=== PATIENT | female | born 1935 | race Caucasian/White ===

== ENCOUNTER 2024-06-16 15:52 | Observation (INO) ==
[2024-06-16 16:16] LABS: BILIRUBIN,URINE NEGATIVE (NEGATIVE); BLOOD/HEMOGLOBIN,URINE 1+ (NEGATIVE); GLUCOSE, URINE 2+ (NEGATIVE); KETONES,URINE 1+ (NEGATIVE); LEUKOCYTE ESTERASE ,URINE NEGATIVE (NEGATIVE); NITRITES,URINE NEGATIVE (NEGATIVE); PH,URINE 6.5 (5.0 - 8.0); PROTEIN,URINE 2+ (NEGATIVE); UROBILINOGEN,URINE NORMAL (NORMAL)
[2024-06-16 16:23] LABS: APPEARANCE,URINE CLEAR (CLEAR); COLOR,URINE PALE YELLOW (YELLOW)
[2024-06-16 16:26] LABS: BACTERIA,URINE NEGATIVE /HPF (NEGATIVE); RBC,URINE 0-2 /HPF (0-3); SQUAMOUS EPITHELIAL CELL,UR RARE /HPF (NEGATIVE)
[2024-06-16 16:32] LABS: BASOPHILS # (AUTO) 0.1 X10^3/uL (0.0-0.1); BASOPHILS % (AUTO) 0.7 % (0.2-1.0); EOSINOPHILS % (AUTO) 0.1 % (0.9-2.9); HEMATOCRIT 38.7 % (36.0-47.0); HEMOGLOBIN 13.2 g/dL (12.0-16.0); LYMPHOCYTES % (AUTO) 10.4 % (21.0-51.0); MEAN CORPUSCULAR HEMOGLOBIN 31.6 pg (27.0-34.0); MEAN CORPUSCULAR HGB CONC 34.1 g/dL (33.0-35.0); MEAN CORPUSCULAR VOLUME 92.5 fL (80.0-100.0); MEAN PLATELET VOLUME 9.2 fL (7.4-11.0); MONOCYTES # (AUTO) 0.2 x10^3/uL (0.3-0.8); MONOCYTES % (AUTO) 1.7 % (0.0-13.0); NEUTROPHILS # (AUTO) 8.2 x10^3/uL (2.2-4.8); NEUTROPHILS % (AUTO) 87.1 % (42.0-75.0); PLATELET COUNT 226 X10^3/uL (150.0-450.0); RED BLOOD COUNT 4.18 X10^6/uL (3.5-5.4); WHITE BLOOD COUNT 9.4 X10^3/uL (3.6-10.0)
[2024-06-16] MEDS: PROCARDIA XL 24-HR PO ONE ×2 (16:33→23:02)
[2024-06-16] MEDS: HYDROCHLOROTHIAZIDE 12.5 MG CAP PO ONE (16:34)
[2024-06-16] MEDS: NORVASC TAB 10 MG PO ONE (16:37)
[2024-06-16 16:41] LABS: ALANINE AMINOTRANSFERASE 19 Units/L (12-78); ALBUMIN 3.6 g/dL (3.4-5.0); ALKALINE PHOSPHATASE 82 Units/L (46-116); ASPARTATE AMINO TRANSFERASE 22 Units/L (15-37); BLOOD UREA NITROGEN 26 mg/dL (7-18); CALCIUM 9.3 mg/dL (8.5-10.1); CARBON DIOXIDE 24.6 mmol/L (21-32); CHLORIDE 101 mmol/L (98-107); COR NA(FOR HYPERGLY) 140 mmol/L (136-145); CREATININE 1.45 mg/dL (0.55-1.02); GLUCOSE 200 mg/dL (65-99); SODIUM 138 mmol/L (136-145); TOTAL PROTEIN 8.1 g/dL (6.4-8.2); eGFR NON BLACK RACES 36 (>60)
[2024-06-16 16:43] LABS: POTASSIUM 4.2 mmol/L (3.5-5.1)
--- NOTE | 2024-06-16 18:10 | DR.URINEF ---
HPI Time Seen Time Seen by Provider: 06/16/24 17:53 PCP Primary Care Physician: chun small HPI Comment HPI Comment: Melissa Small, the patient's PCP called the ER earlier to let us know that patient had been treated for UTI and was still symptomatic and had been weak and a little bit of altered mental status with some confusion. Patient had some improvement with antibiotic then had a fall with no significant injury. She finished the antibiotic and followed up with Ortho after the fall with a negative workup. Patient has continued to complain of dysuria and frequency. In the ER she is able to answer questions well but does appear weak. Per Melissa she had discussed with Dr. Lewis to admit her and help with failure to thrive and possible rehab. Complaint Chief Complaint:: Patient c.o of not feeling well the past couple of days she states she was diagnosed with a uti last week following a fall and she was placed on a antibotic and she finished it and has followed up with a ortho from the fall but still c.o of back pain along with pain when urinating. Patient was taken by primary care staff to the ortho today where she was given toradol shot, steriod shot for her back pain. COVID-19 Coronavirus risk:travel/contact w/high risk person: No Has patient experienced Coronavirus symptoms: No Source History Provided: Patient Mode of Arrival Mode of Arrival: Wheelchair Timing Onset of Chief Complaint: 06/10/24 PMH PMH Past Medical History: Yes Past Medical History: Arthritis, Diabetes, Dyslipidemia, GERD and Hypertension Past Surgical History: Yes Surgical History: Appendectomy, Cholecystectomy and Hysterectomy Family History History of Family Medical Conditions: Yes Family Medical History: Cancer Social History Does patient currently use any type of tobacco product: No Have you used tobacco products in the last 12 months: No Type of Tobacco Use: None Does any household member use tobacco: No Alcohol Use: None Do you use any recreational Drugs:: No Lives With: Family Lives Where: Home Travel Risk Coronavirus risk:travel/contact w/high risk person: No Has patient experienced Coronavirus symptoms: No Infectious screening In the last 2 months have you had wt loss of >10#?: NO Have you had fever, night sweats or hemotysis?: No Have you traveled outside the country in the last 6 months?: No Isolation: Standard ROS Review of Systems Constitutional: No Symptoms Reported and Weakness; negative Fever Eyes: No Symptoms Reported ENTM: No Symptoms Reported Respiratoy: No Symptoms Reported Cardiovascular: No Symptoms Reported Gastrointestinal/Abdominal: No Symptoms Reported Genitourinary: See HPI, Dysuria and Frequency; negative Discharge or Hematuria Neurological: No Symptoms Reported Musculoskeletal: No Symptoms Reported Integumentary: No Symptoms Reported Hematologic/Lymphatic: No Symptoms Reported Endocrine: No Symptoms Reported Psychiatric: No Symptoms Reported All Other Systems: Reviewed and Negative PE Vital Signs Vitals: Vital Signs Temperature 98.8 F Pulse Rate 104 Respiratory Rate 15 Blood Pressure 231/105 O2 Sat by Pulse Oximetry 99 General Limitations: No Limitations General Appearance: Alert, In No Apparent Distress and Other (Generalized weakness) Eyes Eye exam: Normal Appearance ENT ENT Exam: Normal Exam Neck Neck Exam: Normal Inspection Chest Chest Inspection: Normal Inspection Respiratory Respiratory Exam: Normal Lung Sounds Bilat Respiratory Exam: Bilateral: Clear to Auscultation Cardiovascular Cardiovascular Exam: Regular Rate and Normal Rhythm Abdominal Exam Abdominal Exam: Normal Inspection, Normal Bowel Sounds and Soft Rectal Rectal Exam: Deferred Genitourinary External Exam: Female: Deferred : Speculum Exam (Female): Deferred : Bimanual Exam (female): Deferred Extremities Extremities Exam: Normal Inspection Back Back Exam: Normal Inspection Neurologic Neurological Exam: Alert, Oriented X3 and Other (Very subtle confusion. No focal symptoms.) Psychiatric Psychiatric Exam: Normal Affect and Normal Mood Skin Skin Exam: Warm, Dry, Intact and Normal Color Other Exam Other Exam: Patient appears deconditioned. COURSE Treatment Treatment: Discussed results of workup with patient and family. Consultation Called: 18:11 Consultation Comments: Discussed case with Dr. Alex. She is agreeable to admission. [facility] Labs Reviewed 06/16/24 16:20 06/16/24 16:20 Laboratory: WBC 9.4 X10^3/uL (3.6-10.0) 06/16/24 16:20 RBC 4.18 X10^6/uL (3.5-5.4) 06/16/24 16:20 Hgb 13.2 g/dL (12.0-16.0) 06/16/24 16:20 Hct 38.7 % (36.0-47.0) 06/16/24 16:20 MCV 92.5 fL (80.0-100.0) 06/16/24 16:20 MCH 31.6 pg (27.0-34.0) 06/16/24 16:20 MCHC 34.1 g/dL (33.0-35.0) 06/16/24 16:20 RDW 13.0 % (11.6-16.5) 06/16/24 16:20 Plt Count 226 X10^3/uL (150.0-450.0) 06/16/24 16:20 MPV 9.2 fL (7.4-11.0) 06/16/24 16:20 Neut % (Auto) 87.1 % (42.0-75.0) H 06/16/24 16:20 Lymph % (Auto) 10.4 % (21.0-51.0) L 06/16/24 16:20 [place] % (Auto) 1.7 % (0.0-13.0) 06/16/24 16:20 Eos % (Auto) 0.1 % (0.9-2.9) L 06/16/24 16:20 Baso % (Auto) 0.7 % (0.2-1.0) 06/16/24 16:20 Neut # (Auto) 8.2 x10^3/uL (2.2-4.8) H 06/16/24 16:20 Lymph # (Auto) 1.0 X10^3/uL (1.3-2.9) L 06/16/24 16:20 [place] # (Auto) 0.2 x10^3/uL (0.3-0.8) L 06/16/24 16:20 Eos # (Auto) 0.0 x10^3/uL (0.0-0.2) 06/16/24 16:20 Baso # (Auto) 0.1 X10^3/uL (0.0-0.1) 06/16/24 16:20 Absolute Nucleated RBC 0.0 /100WBC 06/16/24 16:20 Sodium 138 mmol/L (136-145) 06/16/24 16:20 Corrected Sodium 140 mmol/L (136-145) 06/16/24 16:20 Potassium 4.2 mmol/L (3.5-5.1) 06/16/24 16:20 Chloride 101 mmol/L (98-107) 06/16/24 16:20 Carbon Dioxide 24.6 mmol/L (21-32) 06/16/24 16:20 BUN 26 mg/dL (7-18) H 06/16/24 16:20 Creatinine 1.45 mg/dL (0.55-1.02) H 06/16/24 16:20 Est GFR (MDRD) Af Amer 44 (>60) L 06/16/24 16:20 Est GFR (MDRD) Non-Af 36 (>60) L 06/16/24 16:20 Glucose 200 mg/dL (65-99) H 06/16/24 16:20 Calcium 9.3 mg/dL (8.5-10.1) 06/16/24 16:20 Corrected Calcium TNP 06/16/24 16:20 Total Bilirubin 0.30 mg/dL (0.2-1.0) 06/16/24 16:20 AST 22 Units/L (15-37) 06/16/24 16:20 ALT 19 Units/L (12-78) 06/16/24 16:20 Alkaline Phosphatase 82 Units/L (46-116) 06/16/24 16:20 Total Protein 8.1 g/dL (6.4-8.2) 06/16/24 16:20 Albumin 3.6 g/dL (3.4-5.0) 06/16/24 16:20 Globulin 4.5 g/dL (2.5-4.5) 06/16/24 16:20 Albumin/Globulin Ratio 0.8 Ratio (1.1-2.1) L 06/16/24 16:20 Specimen Type Clean catch urine 06/16/24 16:07 Urine Color Pale yellow (YELLOW) 06/16/24 16:07 Urine Appearance Clear (CLEAR) 06/16/24 16:07 Urine pH 6.5 (5.0 - 8.0) 06/16/24 16:07 Ur Specific Frederica 1.015 (1.000-1.030) 06/16/24 16:07 Urine Protein 2+ (NEGATIVE) 06/16/24 16:07 Urine Glucose (UA) 2+ (NEGATIVE) 06/16/24 16:07 Urine Ketones 1+ (NEGATIVE) 06/16/24 16:07 Urine Blood 1+ (NEGATIVE) 06/16/24 16:07 Urine Nitrite Negative (NEGATIVE) 06/16/24 16:07 Urine Bilirubin Negative (NEGATIVE) 06/16/24 16:07 Urine Urobilinogen Normal (NORMAL) 06/16/24 16:07 Ur Leukocyte Esterase Negative (NEGATIVE) 06/16/24 16:07 Urine RBC 0-2 /HPF (0-3) 06/16/24 16:07 Urine WBC None seen /HPF (0-5) 06/16/24 16:07 Ur Squamous Epith Cells Rare /HPF (NEGATIVE) 06/16/24 16:07 Urine Bacteria Negative /HPF (NEGATIVE) 06/16/24 16:07 Ur Culture Indicated? No/not indicated 06/16/24 16:07 Opioid Opioid Risk Tool Age (Ayden box if 16-45): No History of Preadolescent Sexual Abuse: No Total: 0 Total Score Risk Category: Low Risk Copyright: Leonel NÚÑEZ predicting aberrant behaviors Discharge Plan Diagnosis Discharge Problem: Acute UTI, Physical deconditioning, Adult failure to thrive Discharge Plan Patient Disposition: 09 ADMITTED INPATIENT Condition: Stable Prescriptions: No Action meloxicam 15 mg tablet 15 mg PO DAILY hydrochlorothiazide 12.5 mg tablet 12.5 mg PO QDAY esomeprazole magnesium 40 mg capsule,delayed release(DR/EC) 40 mg PO QDAY bacitracin 500 unit/gram ointment 1 applic topical BID Qty: 14 0RF potassium chloride 10 mEq tablet,ER particles/crystals 10 meq PO QDAY MDD 1 Qty: 14 0RF cyclobenzaprine 10 mg tablet 10 mg PO QPM nifedipine 90 mg tablet extended release 90 mg PO DAILY Health Concerns: Post Hospitalization: new medications and changes needed to prevent readmission or further decline. Pt educated and given instructions on all concerns. Plan of Treatment: Continue with present treatment and follow up plan. Pt is to keep follow up appointment as instructed and take medications as ordered. Orders to Discharge Patient Discharge Orders: Transfer (Routine); Ordered 06/16/24 Ordered By: Joel Jha Follow ups/Referrals Follow ups/Referrals: Chun Small [Primary Care Provider] - 3 days Instructions Stand Alone Forms: Find Help Web Site, Post Hospital Follow Up Care
[2024-06-16] MEDS: APRESOLINE INJ 20 MG VIAL IVP ONE (18:14)
[2024-06-16] MEDS: CIPRO IV 400 MG PREMIX* 400 MG/200 ML IV.SOLN. IV ONE (18:15)
[2024-06-16] MEDS: TYLENOL 325 MG TAB PO ONE (18:42)
[2024-06-16] MEDS ORDERED: NovoLIN R (or HumuLIN R) SUBCUT PRN (23:03)
[2024-06-16] MEDS: FLEXERIL TAB 10 MG PO SCH (23:51)
[2024-06-16] MEDS: NS 1,000 ML IV 1,000 ML IV SCH (23:52)
[2024-06-17] MEDS: SNACK - Diabetic Appropriate PO SCH (00:14)
--- NOTE | 2024-06-17 00:57 | EKG ---
Test Reason : HYPERTENSION PROTOCOL Blood Pressure : */* mmHG Vent. Rate : 108 BPM Atrial Rate : 108 BPM P-R Int : 156 ms QRS Dur : 86 ms QT Int : 362 ms P-R-T Axes : 93 -34 5 degrees QTc Int : 485 ms Sinus tachycardia with premature atrial complexes Left axis deviation Pulmonary disease pattern Nonspecific ST abnormality Abnormal ECG When compared with ECG of 03-JUN-2024 13:01, pacs and septal mi now gone Confirmed by Shivam Jacob MD ([id number]) on 06/17/2024 6:31:15 AM Referred By: Confirmed By: Shivam Jacob MD
[2024-06-17] MEDS: CATAPRES TAB 0.1 MG PO ONE (01:01)
[2024-06-17] MEDS: ULTRAM PO PRN (01:12)
[2024-06-17 05:23] LABS: BASOPHILS # (AUTO) 0.1 X10^3/uL (0.0-0.1); BASOPHILS % (AUTO) 0.6 % (0.2-1.0); EOSINOPHILS % (AUTO) 0.2 % (0.9-2.9); HEMATOCRIT 38.9 % (36.0-47.0); HEMOGLOBIN 13.5 g/dL (12.0-16.0); LYMPHOCYTES # (AUTO) 2.4 X10^3/uL (1.3-2.9); LYMPHOCYTES % (AUTO) 23.2 % (21.0-51.0); MEAN CORPUSCULAR HEMOGLOBIN 31.7 pg (27.0-34.0); MEAN CORPUSCULAR HGB CONC 34.6 g/dL (33.0-35.0); MEAN CORPUSCULAR VOLUME 91.6 fL (80.0-100.0); MEAN PLATELET VOLUME 9.9 fL (7.4-11.0); MONOCYTES # (AUTO) 1.1 x10^3/uL (0.3-0.8); MONOCYTES % (AUTO) 10.4 % (0.0-13.0); NEUTROPHILS # (AUTO) 6.9 x10^3/uL (2.2-4.8); NEUTROPHILS % (AUTO) 65.6 % (42.0-75.0); PLATELET COUNT 246 X10^3/uL (150.0-450.0); RED BLOOD COUNT 4.25 X10^6/uL (3.5-5.4); WHITE BLOOD COUNT 10.5 X10^3/uL (3.6-10.0)
[2024-06-17 05:38] LABS: ALANINE AMINOTRANSFERASE 16 Units/L (12-78); ALBUMIN 3.6 g/dL (3.4-5.0); ALKALINE PHOSPHATASE 76 Units/L (46-116); ASPARTATE AMINO TRANSFERASE 17 Units/L (15-37); BLOOD UREA NITROGEN 23 mg/dL (7-18); CALCIUM 9.3 mg/dL (8.5-10.1); CHLORIDE 102 mmol/L (98-107); COR NA(FOR HYPERGLY) 141 mmol/L (136-145); GLUCOSE 140 mg/dL (65-99); POTASSIUM 3.7 mmol/L (3.5-5.1); SODIUM 140 mmol/L (136-145); TOTAL PROTEIN 7.9 g/dL (6.4-8.2); eGFR NON BLACK RACES 45 (>60)
[2024-06-17] MEDS ORDERED: CONSULT PHARMACY - POTASSIUM & MAGNESIUM XX SCH (07:00)
[2024-06-17] MEDS: NORVASC TAB 5 MG ONE (07:28)
[2024-06-17] MEDS: PROCARDIA XL 24-HR PO ONE (07:29)
[2024-06-17] MEDS ORDERED: KLOR-CON 10 MEQ TAB PO ONE (08:19)
[2024-06-17] MEDS: K-DUR TAB 20 MEQ PO SCH (08:23)
[2024-06-17] MEDS: KLOR-CON 10 MEQ TAB PO ONE (08:30)
[2024-06-17] MEDS: KLOR-CON 10 MEQ TAB PO SCH (08:30)
[2024-06-17] MEDS: HYDROCHLOROTHIAZIDE 12.5 MG CAP PO SCH (08:30)
[2024-06-17] MEDS: PROCARDIA XL 24-HR PO SCH (08:30)
[2024-06-17] MEDS: NexIUM PO SCH (08:30)
[2024-06-17] MEDS ORDERED: MICARDIS PO SCH (09:00)
[2024-06-17] MEDS: CONSULT PHARMACY - POTASSIUM & MAGNESIUM XX SCH (09:01)
[2024-06-17] MEDS: CORTEF PO SCH ×2 (09:02→09:30)
[2024-06-17] MEDS: LOVENOX INJ 40 MG SYR SC SCH (09:30)
[2024-06-17] MEDS: CORTEF ONE (09:36)
[2024-06-17] MEDS ORDERED: CORTEF ONE (11:43)
[2024-06-17] MEDS: CIPRO IV 400 MG PREMIX* 400 MG/200 ML IV.SOLN. IV SCH (21:15)
[2024-06-18 05:09] LABS: BASOPHILS # (AUTO) 0.1 X10^3/uL (0.0-0.1); BASOPHILS % (AUTO) 0.7 % (0.2-1.0); EOSINOPHILS # (AUTO) 0.1 x10^3/uL (0.0-0.2); EOSINOPHILS % (AUTO) 1.7 % (0.9-2.9); HEMATOCRIT 34.9 % (36.0-47.0); HEMOGLOBIN 12.1 g/dL (12.0-16.0); LYMPHOCYTES # (AUTO) 1.7 X10^3/uL (1.3-2.9); LYMPHOCYTES % (AUTO) 20.3 % (21.0-51.0); MEAN CORPUSCULAR HEMOGLOBIN 31.9 pg (27.0-34.0); MEAN CORPUSCULAR HGB CONC 34.6 g/dL (33.0-35.0); MEAN CORPUSCULAR VOLUME 92.2 fL (80.0-100.0); MEAN PLATELET VOLUME 9.5 fL (7.4-11.0); MONOCYTES # (AUTO) 0.7 x10^3/uL (0.3-0.8); MONOCYTES % (AUTO) 8.4 % (0.0-13.0); NEUTROPHILS # (AUTO) 5.7 x10^3/uL (2.2-4.8); NEUTROPHILS % (AUTO) 68.9 % (42.0-75.0); PLATELET COUNT 215 X10^3/uL (150.0-450.0); RED BLOOD COUNT 3.78 X10^6/uL (3.5-5.4); RED CELL DISTRIBUTION WIDTH 12.6 % (11.6-16.5); WHITE BLOOD COUNT 8.3 X10^3/uL (3.6-10.0)
[2024-06-18 05:25] LABS: ALANINE AMINOTRANSFERASE 19 Units/L (12-78); ALBUMIN 3.3 g/dL (3.4-5.0); ALKALINE PHOSPHATASE 63 Units/L (46-116); ASPARTATE AMINO TRANSFERASE 20 Units/L (15-37); BLOOD UREA NITROGEN 26 mg/dL (7-18); CALCIUM 8.9 mg/dL (8.5-10.1); CARBON DIOXIDE 22.6 mmol/L (21-32); CHLORIDE 101 mmol/L (98-107); COR CA(FOR HYPOALB) 9.5 mg/dL (8.5-10.1); COR NA(FOR HYPERGLY) 136 mmol/L (136-145); CREATININE 1.08 mg/dL (0.55-1.02); GLUCOSE 119 mg/dL (65-99); MAGNESIUM 1.9 mg/dL (2.0-2.9); SODIUM 136 mmol/L (136-145); eGFR NON BLACK RACES 51 (>60)
[2024-06-18] MEDS ORDERED: CONSULT PHARMACY - POTASSIUM & MAGNESIUM XX SCH (08:00)
[2024-06-18] MEDS ORDERED: CORTEF ONE (08:15)
[2024-06-18] MEDS: MAG-OX TAB PO SCH (10:52)
[2024-06-19] MEDS ORDERED: TYLENOL 325 MG TAB PO PRN (03:42)
[2024-06-19] MEDS ORDERED: NORCO 5/325 MG TAB ONE (03:47)
[2024-06-19] MEDS: NORCO 5/325 MG TAB PO PRN (03:48)
[2024-06-19 06:18] LABS: BASOPHILS # (AUTO) 0.1 X10^3/uL (0.0-0.1); BASOPHILS % (AUTO) 1.2 % (0.2-1.0); EOSINOPHILS # (AUTO) 0.2 x10^3/uL (0.0-0.2); EOSINOPHILS % (AUTO) 2.3 % (0.9-2.9); HEMATOCRIT 36.2 % (36.0-47.0); HEMOGLOBIN 12.5 g/dL (12.0-16.0); LYMPHOCYTES # (AUTO) 1.9 X10^3/uL (1.3-2.9); LYMPHOCYTES % (AUTO) 25.3 % (21.0-51.0); MEAN CORPUSCULAR HEMOGLOBIN 31.9 pg (27.0-34.0); MEAN CORPUSCULAR HGB CONC 34.5 g/dL (33.0-35.0); MEAN CORPUSCULAR VOLUME 92.5 fL (80.0-100.0); MEAN PLATELET VOLUME 9.2 fL (7.4-11.0); MONOCYTES # (AUTO) 0.8 x10^3/uL (0.3-0.8); MONOCYTES % (AUTO) 11.1 % (0.0-13.0); NEUTROPHILS # (AUTO) 4.5 x10^3/uL (2.2-4.8); NEUTROPHILS % (AUTO) 60.1 % (42.0-75.0); PLATELET COUNT 220 X10^3/uL (150.0-450.0); RED BLOOD COUNT 3.92 X10^6/uL (3.5-5.4); RED CELL DISTRIBUTION WIDTH 12.5 % (11.6-16.5); WHITE BLOOD COUNT 7.5 X10^3/uL (3.6-10.0)
[2024-06-19 06:29] LABS: ALANINE AMINOTRANSFERASE 18 Units/L (12-78); ALBUMIN 3.2 g/dL (3.4-5.0); ALKALINE PHOSPHATASE 66 Units/L (46-116); ASPARTATE AMINO TRANSFERASE 16 Units/L (15-37); BLOOD UREA NITROGEN 19 mg/dL (7-18); CARBON DIOXIDE 26.7 mmol/L (21-32); CHLORIDE 102 mmol/L (98-107); COR CA(FOR HYPOALB) 9.6 mg/dL (8.5-10.1); COR NA(FOR HYPERGLY) 138 mmol/L (136-145); CREATININE 0.96 mg/dL (0.55-1.02); GLUCOSE 116 mg/dL (65-99); MAGNESIUM 2.1 mg/dL (2.0-2.9); POTASSIUM 3.8 mmol/L (3.5-5.1); SODIUM 138 mmol/L (136-145); eGFR NON BLACK RACES 58 (>60)
[2024-06-19] MEDS ORDERED: CONSULT PHARMACY - POTASSIUM & MAGNESIUM XX SCH (07:00)
[2024-06-19] MEDS: K-DUR TAB 20 MEQ PO SCH (08:31)
[2024-06-19] MEDS: LYRICA CAP 75 mg PO SCH (09:51)
[2024-06-19] MEDS: CORTEF ONE ×2 (09:58→14:38)
[2024-06-20 05:42] LABS: BASOPHILS # (AUTO) 0.1 X10^3/uL (0.0-0.1); EOSINOPHILS # (AUTO) 0.2 x10^3/uL (0.0-0.2); EOSINOPHILS % (AUTO) 2.5 % (0.9-2.9); HEMATOCRIT 34.4 % (36.0-47.0); HEMOGLOBIN 11.9 g/dL (12.0-16.0); LYMPHOCYTES # (AUTO) 1.9 X10^3/uL (1.3-2.9); LYMPHOCYTES % (AUTO) 24.9 % (21.0-51.0); MEAN CORPUSCULAR HEMOGLOBIN 31.9 pg (27.0-34.0); MEAN CORPUSCULAR HGB CONC 34.5 g/dL (33.0-35.0); MEAN CORPUSCULAR VOLUME 92.4 fL (80.0-100.0); MEAN PLATELET VOLUME 9.2 fL (7.4-11.0); MONOCYTES % (AUTO) 14.1 % (0.0-13.0); NEUTROPHILS # (AUTO) 4.3 x10^3/uL (2.2-4.8); NEUTROPHILS % (AUTO) 57.5 % (42.0-75.0); PLATELET COUNT 212 X10^3/uL (150.0-450.0); RED BLOOD COUNT 3.72 X10^6/uL (3.5-5.4); RED CELL DISTRIBUTION WIDTH 12.8 % (11.6-16.5); WHITE BLOOD COUNT 7.5 X10^3/uL (3.6-10.0)
[2024-06-20 05:52] LABS: ALANINE AMINOTRANSFERASE 80 Units/L (12-78); ALBUMIN 2.9 g/dL (3.4-5.0); ALKALINE PHOSPHATASE 97 Units/L (46-116); ASPARTATE AMINO TRANSFERASE 142 Units/L (15-37); BLOOD UREA NITROGEN 19 mg/dL (7-18); CALCIUM 8.6 mg/dL (8.5-10.1); CARBON DIOXIDE 25.2 mmol/L (21-32); CHLORIDE 104 mmol/L (98-107); COR CA(FOR HYPOALB) 9.5 mg/dL (8.5-10.1); CREATININE 0.95 mg/dL (0.55-1.02); GLUCOSE 94 mg/dL (65-99); POTASSIUM 3.9 mmol/L (3.5-5.1); SODIUM 139 mmol/L (136-145); TOTAL PROTEIN 6.5 g/dL (6.4-8.2); eGFR NON BLACK RACES 59 (>60)
[2024-06-20 06:28] VITALS: BMI 28.3
[2024-06-20] MEDS ORDERED: CORTEF ONE (08:02)
[2024-06-20] MEDS: CORTEF ONE (11:55)
[2024-06-20 12:12] VITALS: BP 135/85; PULSE 86; TEMP 97.1; O2SAT 97
[2024-06-20 14:58] VITALS: RESP 20
[2024-06-20] MEDS ORDERED: COLACE CAP 100 MG PO SCH (21:00)
[2024-06-20] MEDS ORDERED: MILK OF MAGNESIA PO SCH (21:00)
== END 2024-06-20 14:59 | disposition swing bed (61) ==
LOC: ER 15:52 → ICU 15:52 → MED/SURG 06-17 17:03
PROVIDERS: ADMIT Internal Medicine; ATTEND Obstetrics & Gynecology Obstetrics